=== PATIENT | female | born 1965 | race Two or more races ===

== ENCOUNTER 2016-08-03 13:58 | Emergency (ER) | payer MEDICAID ==
[~2016-08-03] VITALS: Ht 165.1 cm; Wt 70.3 kg
[2016-08-03 14:25] VITALS: BP 131/91
[2016-08-03] MEDS ORDERED: LACTULOSE 20Gm/30ML SOLN PO ONE (14:45)
[2016-08-03] MEDS ORDERED: KETOROLAC TROMETH 60MG/2ML VIAL IM ONE (14:45)
== END 2016-08-03 19:15 | disposition home or self-care (01) ==
LOC: ER 13:58
DX: K59.00 Constipation, unspecified (principal); K64.8 Other hemorrhoids
CPT/HCPCS: 74022; 96372; 99284; J1885